=== PATIENT | male | born 1980 | race Caucasian/White ===

== ENCOUNTER 2021-05-26 14:29 | Inpatient (IN) | payer BC ==
[~2021-05-26] VITALS: Ht 172.7 cm; Wt 99.5 kg
[2021-05-26 15:40] LABS: HEMATOCRIT 46.8 % (42.0-52.0); HEMOGLOBIN 16.3 g/dl (13.5-18.0); MEAN CELL VOLUME 84 fl (80.0-100.0); MEAN CORPUSCULAR HEMOGLOBIN 29 pg (27.0-31.0); MEAN CORPUSCULAR HGB CONC 35 g/dl (33.0-37.0); MEAN PLATELET VOLUME 9.4 fl (7.4-10.4); PLATELET COUNT 231 K/mm3 (130-400); RED BLOOD COUNT 5.58 M/mm3 (4.20-5.60); REDCELL DISTRIBUTION WIDTH-CV 12.3 % (11.5-14.5)
[2021-05-26 16:12] LABS: ALBUMIN 3.7 gm/dL (3.5-5.0); BILIRUBIN,TOTAL 0.9 mg/dL (0.2-1.2); C-REACTIVE PROTEIN 20.9 mg/dL (0.00-0.50); CALCIUM 8.9 mg/dL (8.4-10.2); CREATININE, serum 1.16 mg/dL (0.72-1.25); POTASSIUM 3.2 mmol/L (3.5-4.5); TOTAL PROTEIN 7.6 gm/dL (6.2-8.1)
[2021-05-26 16:16] LABS: BAND 18 % (0-10); LYMPHOCYTE 5 % (20.0-51.0); NEUTROPHILS 76 % (42.0-75.2); PLATELET ESTIMATE NORMAL (NORMAL)
[2021-05-26 16:21] LABS: TROPONIN-I 0.138 ng/mL (0.00-0.033)
--- NOTE | 2021-05-26 20:00 | NUR ---
Initial shift assessment done- denies pain, states he was hungry-eating some supper now--denies SOB, VSS, temp 97.7. 02 sats 92-94% on RA. On Tele-SR-ST at times. No requests. Up as tolerated in room, watching some TV- orders for antibiotics and remdesivir per DR. Nelson--will start at this time.
[2021-05-26 20:55] VITALS: BP 158/87; PULSE 104; TEMP 97.7
[2021-05-27] VITALS (7 sets, daily range): BP systolic 132–161; BP diastolic 80–96; PULSE 82–107; TEMP 98.3–100.5
--- NOTE | 2021-05-27 05:53 | NUR ---
Did sleep fair during the night-- temp 100.5, Tylenol given at this time, states had one semi liquid stool during the night. On RA throughout night sats 92%.
[2021-05-27 07:29] LABS: BASO % 0.1 % (0.0-2.0); GRAN # 11.4 K/mm3 (1.4-6.5); GRAN % 88.5 % (42.2-75.2); HEMATOCRIT 41.3 % (42.0-52.0); HEMOGLOBIN 14.4 g/dl (13.5-18.0); LYMPH # 1.1 K/mm3 (1.2-3.4); LYMPH % 8.6 % (20.0-51.0); MEAN CELL VOLUME 85 fl (80.0-100.0); MEAN CORPUSCULAR HEMOGLOBIN 30 pg (27.0-31.0); MEAN CORPUSCULAR HGB CONC 35 g/dl (33.0-37.0); MEAN PLATELET VOLUME 9.9 fl (7.4-10.4); MONO # 0.2 K/mm3 (0.1-0.6); MONO % 1.9 % (1.7-9.3); PLATELET COUNT 229 K/mm3 (130-400); RED BLOOD COUNT 4.84 M/mm3 (4.20-5.60); REDCELL DISTRIBUTION WIDTH-CV 12.6 % (11.5-14.5)
[2021-05-27 08:09] LABS: CALCIUM 8.1 mg/dL (8.4-10.2); CREATININE, serum 0.86 mg/dL (0.72-1.25); MAGNESIUM 2.1 mg/dL (1.6-2.6); POTASSIUM 3.1 mmol/L (3.5-4.5)
[2021-05-27 08:20] LABS: TROPONIN-I 0.102 ng/mL (0.00-0.033)
--- NOTE | 2021-05-27 09:33 | NUR ---
Pt awake upon entry, no C/O pain at this time. Shift assessments complete, left Pt sitting in the recliner, call light in reach.
--- NOTE | 2021-05-27 14:27 | NUR ---
[employer] Specialist contacted patient by phone to complete intake assessment as patient is in isolation for COVID. Patient lives in [place], [place] with his mother, Nicole. Patient does not have a primary care physician and is not interested in SW assisting him in establishing primary care at this time. Patient states he can do this if he wants to. 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 Patient is independent with ADLS and plans to return home upon discharge. Patient does not have Advance Directives and is not interested in establishing DPOA-HC at this time. Patient is not and does not have any children. Patient's next of kin is his mother, Nicole. Discharge Plan: Home
--- NOTE | 2021-05-27 15:27 | NUR ---
Pt discharged to home, [facility] Pt escorted to entrance via WC by PCT, Pt left with family via private transportation.
[2021-05-28 03:58] VITALS: BP 162/91; PULSE 80; TEMP 98.4
[2021-05-28 08:14] VITALS: BP 121/97; PULSE 89; TEMP 97.9
--- NOTE | 2021-05-28 08:16 | NUR ---
CAME INTO PT ROOM AROUND 0800, PT FOUND AT 83% RA WHEN GETTING VITAL SIGNS. SLOWLY TITRATED UP TO 4L AFTER 10MIN AND PT SATTING 88%, TITRATED AGAIN TO 5L AND PT UP TO 89%. PT DENIES SOB, LUNG SOUNDS DIMINISHED. PT DENIES PAIN, FRESH ICE WATER AND MILK BROUGHT IN PER PT REQUEST, ASSESSMENT PERFORMED, DOXY INFUSING TO LAC, PT HAS CALL LIGHT AND PHONE WITHIN REACH, PT EAGER FOR DISCHARGE.
--- NOTE | 2021-05-28 08:21 | NUR ---
TITRATED TO 6L AND PT SATTING 90%
[2021-05-28 10:43] LABS: HEMATOCRIT 45.6 % (42.0-52.0); HEMOGLOBIN 15.6 g/dl (13.5-18.0); MEAN CELL VOLUME 86 fl (80.0-100.0); MEAN CORPUSCULAR HEMOGLOBIN 30 pg (27.0-31.0); MEAN CORPUSCULAR HGB CONC 34 g/dl (33.0-37.0); MEAN PLATELET VOLUME 10.3 fl (7.4-10.4); RED BLOOD COUNT 5.28 M/mm3 (4.20-5.60)
[2021-05-28 10:54] LABS: PLATELET COUNT 357 K/mm3 (130-400)
[2021-05-28 11:08] LABS: ARTERIAL BLD GAS O2 SATURATION 98.2 % (92-100); ARTERIAL BLD GAS TCO2 CT 28.1; ARTERIAL BLOOD GAS BASE EXCESS 3.7 (-2-2); ARTERIAL BLOOD GAS PCO2 36.8 mmHg (35-45); ARTERIAL BLOOD GAS PO2 111.3 mmHg (80-100); ARTERIAL BLOOD GAS pH 7.48 (7.35-7.45)
[2021-05-28 11:14] LABS: C-REACTIVE PROTEIN 12.3 mg/dL (0.00-0.50); CALCIUM 8.7 mg/dL (8.4-10.2); CREATININE, serum 0.92 mg/dL (0.72-1.25); POTASSIUM 3.2 mmol/L (3.5-4.5)
[2021-05-28 11:49] VITALS: BP 136/89; PULSE 74; TEMP 97.6
--- NOTE | 2021-05-28 12:07 | NUR ---
PT O2 SAT RESTING AT 98% ON 5 L NC. TITRATED DOWN TO 4 L. WILL CONTINUE TO MONITOR.
--- NOTE | 2021-05-28 14:28 | NUR ---
TITRATED PT DOWN TO 3L VIA NASAL CANNULA. PT TOLERATING WELL. PT SP02 AT 95%.
[2021-05-28 16:44] VITALS: BP 146/87; PULSE 81; TEMP 97.7
[2021-05-28 19:38] VITALS: BP 144/88; PULSE 96; TEMP 98.3
[2021-05-28 23:59] VITALS: BP 166/93; PULSE 78; TEMP 98.3
[2021-05-29 02:58] VITALS: BP 145/80; PULSE 82; TEMP 98.4
[2021-05-29 08:01] VITALS: BP 150/95; PULSE 94; TEMP 97.7
[2021-05-29 09:01] LABS: BASO % 0.1 % (0.0-2.0); GRAN # 12.1 K/mm3 (1.4-6.5); GRAN % 84.1 % (42.2-75.2); HEMATOCRIT 42.4 % (42.0-52.0); HEMOGLOBIN 14.5 g/dl (13.5-18.0); LYMPH # 1.5 K/mm3 (1.2-3.4); LYMPH % 10.1 % (20.0-51.0); MEAN CELL VOLUME 86 fl (80.0-100.0); MEAN CORPUSCULAR HEMOGLOBIN 29 pg (27.0-31.0); MEAN CORPUSCULAR HGB CONC 34 g/dl (33.0-37.0); MEAN PLATELET VOLUME 10.1 fl (7.4-10.4); MONO # 0.7 K/mm3 (0.1-0.6); MONO % 4.9 % (1.7-9.3); PLATELET COUNT 384 K/mm3 (130-400); RED BLOOD COUNT 4.96 M/mm3 (4.20-5.60); REDCELL DISTRIBUTION WIDTH-CV 12.7 % (11.5-14.5)
[2021-05-29 09:16] LABS: C-REACTIVE PROTEIN 5.8 mg/dL (0.00-0.50); MAGNESIUM 2.2 mg/dL (1.6-2.6)
[2021-05-29 09:43] LABS: CALCIUM 8.2 mg/dL (8.4-10.2); CREATININE, serum 0.92 mg/dL (0.72-1.25); POTASSIUM 3.3 mmol/L (3.5-4.5)
[2021-05-29 12:06] VITALS: BP 146/92; PULSE 69; TEMP 98.3
[2021-05-29 16:35] VITALS: BP 146/92; PULSE 70; TEMP 98.7
--- NOTE | 2021-05-29 17:28 | NUR ---
PT SAT UPRIGHT IN CHAIR THROUGHOUT DAY. NO COMPLAINTS OF SOA, OR PAIN THROUGHOUT SHIFT. PT PLEASANT. SPO2 REMAINED ABOVE 93% ON 5 L VIA HI FLOW NC. NO IV FLUIDS RUNNING.
[2021-05-29 20:28] VITALS: BP 148/78; PULSE 92; TEMP 98
[2021-05-30 00:22] VITALS: BP 146/87; PULSE 81; TEMP 98
[2021-05-30 04:05] LABS: ARTERIAL BLD GAS O2 SATURATION 92.9 % (92-100); ARTERIAL BLD GAS TCO2 CT 28.4; ARTERIAL BLOOD GAS BASE EXCESS 4.2 (-2-2); ARTERIAL BLOOD GAS HCO3 27.3 meq/L (22-26); ARTERIAL BLOOD GAS PCO2 35.9 mmHg (35-45); ARTERIAL BLOOD GAS PO2 64.5 mmHg (80-100)
[2021-05-30 04:39] VITALS: BP 137/97; PULSE 76; TEMP 97.9
[2021-05-30 07:22] LABS: BASO % 0.2 % (0.0-2.0); EOS % 0.1 % (0-4.0); GRAN # 11.6 K/mm3 (1.4-6.5); GRAN % 81.8 % (42.2-75.2); LYMPH # 1.6 K/mm3 (1.2-3.4); LYMPH % 11.3 % (20.0-51.0); MEAN CELL VOLUME 86 fl (80.0-100.0); MEAN CORPUSCULAR HEMOGLOBIN 29 pg (27.0-31.0); MEAN CORPUSCULAR HGB CONC 34 g/dl (33.0-37.0); MEAN PLATELET VOLUME 9.6 fl (7.4-10.4); MONO # 0.8 K/mm3 (0.1-0.6); MONO % 5.4 % (1.7-9.3); PLATELET COUNT 382 K/mm3 (130-400); RED BLOOD COUNT 4.78 M/mm3 (4.20-5.60); REDCELL DISTRIBUTION WIDTH-CV 12.4 % (11.5-14.5)
[2021-05-30 07:42] VITALS: BP 153/90; PULSE 78; TEMP 98.4
[2021-05-30 08:12] LABS: ALBUMIN 2.9 gm/dL (3.5-5.0); BILIRUBIN,TOTAL 0.7 mg/dL (0.2-1.2); C-REACTIVE PROTEIN 3.6 mg/dL (0.00-0.50); CALCIUM 8.3 mg/dL (8.4-10.2); CREATININE, serum 0.88 mg/dL (0.72-1.25); POTASSIUM 3.9 mmol/L (3.5-4.5); TOTAL PROTEIN 5.9 gm/dL (6.2-8.1)
--- NOTE | 2021-05-30 10:51 | NUR ---
Patient sitting in recliner upon entering the room. He has no complaints at this time. Morning medications administered and shift assessment completed.
[2021-05-30 12:00] VITALS: BP 153/92; PULSE 64; TEMP 97.8
[2021-05-30] MEDS ORDERED: ASPIRIN 81M81 MG/TA2 PO (12:10)
[2021-05-30] MEDS ORDERED: DOXYCYCLINE HY100 MG PO (12:10)
[2021-05-30] MEDS ORDERED: LIPITOR 40MG TA40 MG PO (12:11)
[2021-05-30] MEDS ORDERED: PROAIR HFA0.09 MG/AC IH (12:11)
[2021-05-30] MEDS ORDERED: LOPRESSOR100 MG PO (12:11)
[2021-05-30] MEDS ORDERED: DECADRON6 MG PO (12:12)
--- NOTE | 2021-05-30 13:42 | NUR ---
SW update: SW made aware of DC. SW patient spoke with patient via phone. Patient reports that he does not have anyone at home to help with 02 setup. SW contacted [facility] for oxygen at 4 liters at home. Home medical office scheduler Celestino reports that her can deliver the oxygen to the hospital in abou 2 hours. SW notified the patient. Rep will help patient set up concentrator from outside of the home.
--- NOTE | 2021-05-30 15:12 | NUR ---
Patient escorted out by this RN. Patient given patient education and this RN explained that the patient will still need to isolate once he is home until the 14days are over and he is asymptomatic. Patient was advised to have a friend or family member medicinal plant picker his prescriptions.
--- NOTE | 2021-06-01 10:08 | NUR ---
mold yard worker contacted patient and received approval to set up primary care provider at [facility]. Worker arranged for the clinic to call patient and schedule an appointment.
== END 2021-05-30 14:50 | disposition home or self-care (01) | DRG 177 ==
LOC: COL.ER 14:29 → MEDICAL 15:37
PROVIDERS: Emergency Medicine; Internal Medicine; ADMIT Internal Medicine
PROC: XW043E5 Introduction of Remdesivir Anti-infective into Central Vein, Percutaneous Approach, New Technology Group 5 (ICD-10-PCS; principal; 2021-05-26)
DX: U07.1 COVID-19 (principal); J96.01 Acute respiratory failure with hypoxia; I21.A1 Myocardial infarction type 2; J12.82 Pneumonia due to coronavirus disease 2019; I43 Cardiomyopathy in diseases classified elsewhere; E87.6 Hypokalemia; I10 Essential (primary) hypertension; R74.01 Elevation of levels of liver transaminase levels; R50.9 Fever, unspecified; R19.7 Diarrhea, unspecified; I11.9 Hypertensive heart disease without heart failure
CPT/HCPCS: 99223-AI; 99232-AI; 99239; A9284; J0696; J1100; J1650; J7030; J7050; J8540